=== PATIENT | male | born 1985 | race Caucasian/White ===

== ENCOUNTER 2022-07-03 13:46 | Emergency (ER) | payer OTHER ==
[~2022-07-03] VITALS: Ht 185.4 cm; Wt 104.1 kg
[2022-07-03] MEDS ORDERED: CIPRHCOTIC AS (15:37)
[2022-07-03] MEDS ORDERED: AMOX875T2 PO (15:37)
[2022-07-03 15:44] VITALS: BP 144/91
== END 2022-07-03 15:44 | disposition home or self-care (01) ==
LOC: M ED 13:46
DX: H66.002 Acute suppurative otitis media without spontaneous rupture of ear drum, left ear (principal); H60.502 Unspecified acute noninfective otitis externa, left ear

== ENCOUNTER → 2024-05-07 | Outpatient (CLI) | payer OTHER ==
[~2024-05-07] MED LIST: AMOX875T2 PO; CIPRHCOTIC AS
== END ==
LOC: M RAD 12:27
DX: S00.85XA Superficial foreign body of other part of head, initial encounter (principal)

== ENCOUNTER → 2024-07-08 | Outpatient (CLI) | payer OTHER | LOC: M PLARAD 14:51 | PROVIDERS: ATTEND Physician Assistant Surgical | DX: M53.3 Sacrococcygeal disorders, not elsewhere classified (principal); M46.1 Sacroiliitis, not elsewhere classified ==